=== PATIENT | female | born 1955 | race Caucasian/White ===

== ENCOUNTER 2020-01-10 11:55 | Inpatient (IN) | payer SELFPAY ==
--- NOTE | 2020-01-10 12:05 | ER Document Report ---
ED Medical Screen (RME) - General Chief Complaint: S/S of Possible Stroke Stated Complaint: POSSIBLE STROKE Time Seen by Provider: 01/10/20 11:57 - HPI Notes: 01/10/20 12:02 64-year-old female presents to the emergency room by private car for acute altered mental status. Patient states she went to work yesterday and could not remember "anything". Patient stated that it is October 09, 1996 stated that the president was Camacho and the choices was able to say that it was summer. She reports she has numbness and tingling in her right arm but this is pre-existing. Patient was having much difficulty trying to find her words. Denies any chest pain, shortness of breath, nausea vomiting or diarrhea, abdominal pain. Patient is alert and presents to the emergency room and is currently a poor historian. Patient will be evaluated in the back by one of the providers after getting a stat CT of her head. I have greeted and performed a rapid initial assessment of this patient. A comprehensive ED assessment and evaluation of the patient, analysis of test results and completion of the medical decision making process will be conducted by additional ED providers. PHYSICAL EXAMINATION: GENERAL: Chronically ill, well-nourished and in no acute distress. HEAD: Atraumatic, normocephalic. EYES: Pupils equal round extraocular movements intact, conjunctiva are normal. NECK: Normal range of motion CV: s1, s2 regular LUNGS: No respiratory distress Musculoskeletal: Normal range of motion NEUROLOGICAL: Normal speech, normal gait. PERRLA, EOMI. Full motor and sensory function throughout. Applied Technologist + 2 equal bilaterally in BUE. Tongue midline. No pronator drift. Neck with APROM. Raises eyebrows. Strength is 5 out of 5 in bilateral upper and lower extremities equally.Speaks in partial sentences. No weakness on one side. SKIN: Warm, Dry, normal turgor, no rashes or lesions noted.
--- NOTE | 2020-01-10 12:29 | RADIOLOGY REPORT (SQ) ---
EXAM DESCRIPTION: CT HEAD WITHOUT IMAGES COMPLETED DATE/TIME: 01/10/2020 12:08 pm REASON FOR STUDY: AMS COMPARISON: None. TECHNIQUE: Axial images acquired through the brain without intravenous contrast. Images reviewed wi th bone, brain and subdural windows. Additional sagittal and coronal reconstructions were generated. Images stored on PACS. All CT scanners at this facility use dose modulation, iterative reconstruction, and/or weight based d osing when appropriate to reduce radiation dose to as low as reasonably achievable (ALARA). [facility]: Dose Right [facility]: CareDose [facility]: Dose Right [facility]: Teradose 4D [facility]: Hallspot RADIATION DOSE: CT Rad equipment meets quality standard of care and radiation dose reduction techniq ues were employed. CTDIvol: 53.2 mGy. DLP: 1070 mGy-cm. mGy. LIMITATIONS: None. FINDINGS: VENTRICLES: Normal size and contour. CEREBRUM: No masses. No hemorrhage. No midline shift. No evidence for acute infarction. Focal area of decreased attenuation in the left frontal lobe consistent with acute infarct. CEREBELLUM: No masses. No hemorrhage. No alteration of density. No evidence for acute infarction. EXTRAAXIAL SPACES: No fluid collections. No masses. ORBITS AND GLOBE: No intra- or extraconal masses. Normal contour of globe without masses. CALVARIUM: No fracture. PARANASAL SINUSES: No fluid or mucosal thickening. SOFT TISSUES: No mass or hematoma. OTHER: No other significant finding. IMPRESSION: Acute left frontal lobe infarct. No hemorrhage. EVIDENCE OF ACUTE STROKE: YES. COMMENT: Pertinent positive or negative findings of the imaging study reported as a CRITICAL EXAM t carolynn Cantu at12:21 on 01/10/2020. Category of Critical Exam: Stroke protocol. Quality ID # 436: Final reports with documentation of one or more dose reduction techniques (e.g., Au tomated exposure control, adjustment of the mA and/or kV according to patient size, use of iterative reconstruction technique) TECHNICAL DOCUMENTATION: JOB ID: [id number] 2010 [employer]- All Rights Reserved Reading location - IP/workstation name: [email or web address]
--- NOTE | 2020-01-10 12:29 | RADIOLOGY REPORT (SQ) ---
EXAM DESCRIPTION: CHEST SINGLE VIEW IMAGES COMPLETED DATE/TIME: 01/10/2020 12:13 pm REASON FOR STUDY: AMS COMPARISON: None. EXAM PARAMETERS: NUMBER OF VIEWS: One view. TECHNIQUE: Single frontal radiographic view of the chest acquired. RADIATION DOSE: NA LIMITATIONS: None. FINDINGS: LUNGS AND PLEURA: No opacities, masses or pneumothorax. No pleural effusion. MEDIASTINUM AND HILAR STRUCTURES: No masses. Contour normal. HEART AND VASCULAR STRUCTURES: Heart normal in size. Normal vasculature. BONES: No acute findings. HARDWARE: None in the chest. OTHER: No other significant finding. IMPRESSION: NO ACUTE RADIOGRAPHIC FINDING IN THE CHEST. TECHNICAL DOCUMENTATION: JOB ID: [id number] 2010 [employer]- All Rights Reserved Reading location - IP/workstation name: [email or web address]
[2020-01-10] MEDS ORDERED: ASPIRIN 325 MG TABLET PO ONE (12:43)
[2020-01-10 12:44] LABS: ABSOLUTE BASOPHILS # (AUTO) 0.1 10^3/uL (0.0-0.2); ABSOLUTE MONOCYTES (AUTO) 0.4 10^3/uL (0.1-1.4); ABSOLUTE NEUT (AUTO) 4.7 10^3/uL (1.7-8.2); EOSINOPHILS % (AUTO) 0.7 % (0-6); HEMATOCRIT 40.9 % (36.0-47.0); HEMOGLOBIN 13.9 g/dL (12.0-15.5); LYMPHOCYTES % (AUTO) 27.4 % (13-45); MEAN CORPUSCULAR HEMOGLOBIN 31.2 pg (27.0-33.4); MEAN CORPUSCULAR VOLUME 92 fl (80-97); MONOCYTES % (AUTO) 5.8 % (3-13); PLATELET COUNT 280 10^3/uL (150-450); RED BLOOD COUNT 4.46 10^6/uL (3.72-5.28); RED CELL DISTRIBUTION WIDTH 13.5 % (11.5-14.0); SEGMENTED NEUTROPHILS % (AUTO) 65.1 % (42-78); TOTAL CELLS COUNTED % (AUTO) 100 %; WHITE BLOOD COUNT 7.2 10^3/uL (4.0-10.5)
--- NOTE | 2020-01-10 12:47 | ER Document Report ---
ED NIH Stroke Scale - NIH Stroke Scale When completed:: Before Alteplase *: 1. NIH scale should be completed with appropriate accompanying assessment tools. *: 2. The NIH should reflect what the patient is capable of doing and should not be coached by the clinician. 1a. Level of Consciousness: 0=Alert;keenly responsive -: 1=Drowsy -: 2=Obtunded -: 3=Coma/unresponsive or reflex to noxious stimuli. 1a. Responses: 0 1b. Orientation Questions: a. What month is it? -: b. How old are you? -: 0=Answers both questions correctly. -: 1=Answers one question correctly or patient is intubated or has orotracheal trauma. -: 2=Answers neither question correctly. 1b. Responses: 1 1c. Response to commands: a. Open and close eyes? -: b. Plastic Surgery Nurse and release hand? -: Credit is given despite weakness. Demonstration of task is permitted. Substitute command if hands cannot be used. -: 0=Performs both tasks correctly -: 1=Performs one task correctly -: 2=Performs neither task correctly 1c. Responses: 0 2. Gaze: Establish eye contact and instruct patient to "Follow my finger" -: 0=Normal -: 1=Partial gaze palsy. Gaze is abnormal in one or both eyes, but where forced deviation or total gaze paresis is not present. -: 2=Forced deviation or total gaze paresis. 2. Responses: 0 3. Visual Doherty: Sees fingers in all four quadrants. -: 0=No visual loss. -: 1=Partial hemianopsia. -: 2=Complete hemianopsia. -: 3=Bilateral hemianopsia (including Cortical blindness) 3. Responses: 0 4. Facial Movement: Instruct patient to: -: a. Show me your teeth -: b. Raise your eyebrows -: c. Close your eyes -: d. Smile -: 0=Normal symmetrical movement -: 1=Minor paralysis (flattened nasolabial fold, asymmetry on smiling). -: 2=Partial paralysis (total or near total paralysis of lower face). -: 3=Complete paralysis of upper and lower face 4. Responses: 0 5. Motor functions (left arm): Alternate sides and extend each arm with palms down (90 degrees if sitting or 45 degrees for supine). -: 0=No drift;limb holds for full 10 seconds. -: 1=Drift; limb holds but drifts down before full 10 seconds, but does not hit bed. -: 2=Some effort against gravity; limb cannot get to or maintain position. -: 3=No effort against gravity; limb falls. -: 4=No movement. -: UN=Amputation, joint fusion, explain in comments. 5. Responses (left arm): 0 5. Motor Functions (right arm): Alternate sides and extend each arm with palms down (90 degrees if sitting or 45 degrees for supine). -: 0=No drift;limb holds for full 10 seconds. -: 1=Drift; limb holds but drifts down before full 10 seconds, but does not hit bed. -: 2=Some effort against gravity; limb cannot get to or maintain position. -: 3=No effort against gravity; limb falls. -: 4=No movement. -: UN=Amputation, joint fusion, explain in comments. 5. Responses (right arm): 0 6. Motor Functions (left leg): With patient lying supine, alternate sides and extend each leg (30 degrees always while supine). -: 0=No drift, leg holds position for full 5 seconds -: 1=Drift; leg falls before full 5 seconds but does not hit bed. -: 2=Some effort against gravity, leg falls to bed but some effort against gravity. -: 3=No effort against gravity, leg falls to bed immediately. -: 4=No movement. -: UN=Amputation, joint fusion; explain in comments. 6. Responses (left leg): 0 6. Motor Functions (right leg): With patient lying supine, alternate sides and extend each leg (30 degrees always while supine). -: 0=No drift, leg holds position for full 5 seconds -: 1=Drift; leg falls before full 5 seconds but does not hit bed. -: 2=Some effort against gravity, leg falls to bed but some effort against gravity. -: 3=No effort against gravity, leg falls to bed immediately. -: 4=No movement. -: UN=Amputation, joint fusion; explain in comments. 6. Responses (right leg): 0 7. Limb Ataxia: With eyes open instruct patient to: -: a. "Touch your finger to your nose". -: b. "Touch your heel to your desai" -: 0=Absent -: 1=Present in one limb. -: 2=Present in two limbs. -: UN=Amputation or joint fusion; explain in comments. 7. Responses: 0 8. Sensory: Test sensation using pinprick or noxious stimuli. Test as many body parts as possible. -: 0=Normal;no sensory loss -: 1=Mile to moderate sensory loss (patient feels pin prick but is less sharp on affected side). -: 2=Severe or total sensory loss. 8. Responses: 0 9. Best Language: Instruct patient to: -: a. "Describe what you see in this picture." -: b. "Name the items in this picture." -: c. "Read these sentences." -: 0=No aphasia, normal -: 1=Mild to moderate aphasia. -: 2=Severe aphasia -: 3=Mute, global aphasia, no usable speech or auditory comprehension. 9. Responses: 2 10. Articulation, Dysarthia: Instruct patient to: -: "Read these words" or "Repeat these words" -: 0=Normal -: 1=Mild to moderate; patient may slur some words but can be understood without difficulty. -: 2=Severe; patients speech so slurred as to be unintelligible in the absence of dysphasia. -: UN=Intubated or other physical barrier, explain in comments. 10. Responses: 0 11. Extinction or inattention: 0=No abnormality -: 1= Visual, tactile, auditory, spatial, or personal inattention or extinction to bilateral simulation in one or the sensory modalities. -: 2=Profound shaheen-inattention or shaheen-inattention to more than one modality; does not recognize own hand. 11. Responses: 0 Total Score: 3
[2020-01-10 12:50] LABS: INTERNATIONAL RATION (INR) 0.93; PROTHROMBIN TIME 12.5 SEC (11.4-15.4)
[2020-01-10 12:51] LABS: PARTIAL THROMBOPLASTIN TIME 30.7 SEC (23.5-35.8)
[2020-01-10 13:06] LABS: ALBUMIN 4.3 g/dL (3.5-5.0); ALKALINE PHOSPHATASE 100 U/L (38-126); ANION GAP 7 (5-19); ASPARTATE AMINO TRANSFERASE 27 U/L (14-36); BILIRUBIN,TOTAL 0.4 mg/dL (0.2-1.3); BLOOD UREA NITROGEN 12 mg/dL (7-20); CALCIUM 10.1 mg/dL (8.4-10.2); CARBON DIOXIDE 24 mmol/L (22-30); CHLORIDE 103 mmol/L (98-107); GLUCOSE 149 mg/dL (75-110); PHOSPHORUS 3.5 mg/dL (2.5-4.5); POTASSIUM 4.8 mmol/L (3.6-5.0); TOTAL PROTEIN 7.3 g/dL (6.3-8.2)
--- NOTE | 2020-01-10 13:38 | ER Document Report ---
ED General - General Chief Complaint: S/S of Possible Stroke Stated Complaint: POSSIBLE STROKE Time Seen by Provider: 01/10/20 11:57 Mode of Arrival: Ambulatory Information source: Patient - HPI Notes: Patient arrives stating that she is having trouble speaking. She states that this started "yesterday afternoon". She states she does not know the exact time that it started yesterday afternoon. When pressed further she told one nurse it was 10:30 AM yesterday and another that it was 8 AM yesterday. Patient denies any pain. She states she is not having any trouble moving any extremity. She denies any numbness. She denies any vision changes or trouble swallowing. The main problem she has noticed is trouble speaking. This has been constant. She has not noticed any that makes it better or worse. There is obviously no radiation of the symptom. It is been severe. She denies any previous history of strokes or heart disease. Past Medical History - General Information source: Patient - Social History Smoking Status: Current Every Day Smoker Frequency of alcohol use: None Drug Abuse: None Family History: Reviewed & Not Pertinent Past Surgical History: Reports: Hx Section, Hx Hysterectomy Review of Systems - Review of Systems Constitutional: denies: Chills, Fever Cardiovascular: denies: Chest pain, Palpitations Respiratory: denies: Cough, Short of breath -: Yes All other systems reviewed and negative Physical Exam - Vital signs Vitals: Temp Pulse Resp BP Pulse Ox 98.7 F 112 H 20 136/76 H 99 01/10/20 11:59 01/10/20 11:59 01/10/20 11:59 01/10/20 11:59 01/10/20 11:59 Interpretation: Tachycardic - General General appearance: Appears well, Alert - HEENT Head: Normocephalic, Atraumatic Eyes: Normal Pupils: PERRL - Respiratory Respiratory status: No respiratory distress Chest status: Nontender Breath sounds: Normal Chest palpation: Normal - Cardiovascular Rhythm: Tachycardia Heart sounds: Normal auscultation Murmur: No - Abdominal Inspection: Normal Distension: No distension Bowel sounds: Normal Tenderness: Nontender Organomegaly: No organomegaly - Back Back: Normal, Nontender - Extremities General upper extremity: Normal inspection, Nontender, Normal color, Normal ROM, Normal temperature General lower extremity: Normal inspection, Nontender, Normal color, Normal ROM, Normal temperature, Normal weight bearing. No: Brian's sign - Neurological Neuro grossly intact: Yes Cognition: Confused Orientation: Disoriented to time Mini Coma Scale Eye Opening: Spontaneous [place] Coma Scale Verbal: Confused [place] Coma Scale Motor: Obeys Commands [place] Coma Scale Total: 14 Speech: Expressive aphasia Cerebellar coordination: No: Gait ataxia, Finger-nose rhombey Motor strength normal: LUE, RUE, LLE, RLE Additional motor exam normals: Equal sas etl developer. No: Involuntary movements, Pronator drift, Weakness Sensory: Normal - Psychological Associated symptoms: Normal affect, Normal mood - Skin Skin Temperature: Warm Skin Moisture: Dry Skin Color: Normal Course - Re-evaluation Re-evalutation: 01/10/20 13:37 Patient presents with signs and symptoms of an acute stroke. Head CT confirms the patient is having an acute stroke in the left MCA distribution. Patient is outside of the window for any type of intervention as she is more than 24 hours since the onset of symptoms. I did discuss this case with neurology at [facility] as well as [facility]. They both state that patient is not within the window for any type of treatment that could not be performed here. They both recommended that patient be admitted here for further care. She is within the permissible hypertension window therefore her blood pressure has not been treated at this time. She has been given an aspirin. She will be admitted to the hospital. - Vital Signs Vital signs: Temp Pulse Resp BP Pulse Ox 98.7 F 90 20 169/103 H 95 01/10/20 11:59 01/10/20 12:40 01/10/20 12:40 01/10/20 12:40 01/10/20 12:40 - Laboratory Result Diagrams: 01/10/20 12:25 01/10/20 12:25 Laboratory results interpreted by me: 01/10/20 12:25 Sodium 134.1 L Glucose 149 H - Diagnostic Test Radiology reviewed: Image reviewed, Reports reviewed - EKG Interpretation by Me EKG shows normal: Sinus rhythm Rate: Tachycardia - 107 Rhythm: NSR Albin/QRS: Left axis deviation Critical Care Note - Critical Care Note Total time excluding time spent on procedures (mins): 35 Comments: Approximate 35 minutes of acute care time were spent on this patient with an acute stroke. This was spent doing multiple reassessments. It was spent talking with multiple consultants. It was spent reviewing imaging and laboratory values. Discharge - Discharge Clinical Impression: Acute CVA (cerebrovascular accident), Expressive aphasia Condition: Serious Disposition: ADMITTED INPATIENT Admitting Provider: Vitaly (Hospitalist) Unit Admitted: Telemetry
[2020-01-10] MEDS ORDERED: ONDANSETRON 4 MG TAB.RAPDIS PO PRN (15:06)
[2020-01-10] MEDS ORDERED: ONDANSETRON HCL INJ/PF 4 MG/2 ML SDV IV PRN (15:06)
[2020-01-10] MEDS ORDERED: ACETAMINOPHEN 325 MG TABLET PO PRN (15:06)
--- NOTE | 2020-01-10 15:39 | RADIOLOGY REPORT (SQ) ---
EXAM DESCRIPTION: CTA HEAD IMAGES COMPLETED DATE/TIME: 01/10/2020 2:54 pm REASON FOR STUDY: stroke with expressive aphasia COMPARISON: None. TECHNIQUE: Post IV contrast scanning, thin section axial imaging through the brain to evaluate the a rterial structures. Source and MIP images are saved and reviewed on PACS. Advanced 3D imaging as volume-rendering, MIPs, SSD performed? yes All CT scanners at this facility use dose modulation, iterative reconstruction, and/or weight based d osing when appropriate to reduce radiation dose to as low as reasonably achievable (ALARA). [facility]: Dose Right [facility]: CareDose [facility]: Dose Right [facility]: Teradose 4D [facility]: LRN CONTRAST TYPE AND DOSE: 70 mL Omnipaque 350 RENAL FUNCTION: BUN 12, creatinine 0.6 LIMITATIONS: None. FINDINGS: TON[place]ANDA OF LOOMIS: The anterior, middle, posterior cerebral arteries are all patent. No ev idence of aneurysm or focal stenosis. POSTERIOR CIRCULATION: The distal vertebral arteries are patent as is the basilar artery. No aneurysm . BRAIN: No gross enhancing lesions as visualized. BONES: Intact as visualized. SINUSES: There is mucosal thickening in the right maxillary sinus. OTHER: No other significant finding. IMPRESSION: No large vessel occlusion. No aneurysm or focal stenosis. TECHNICAL DOCUMENTATION: JOB ID: [id number] Quality ID # [id number]: Final reports with documentation of one or more dose reduction techniques (e.g., Au tomated exposure control, adjustment of the mA and/or kV according to patient size, use of iterative reconstruction technique) 2010 [employer]- All Rights Reserved Reading location - IP/workstation name: [email or web address]
--- NOTE | 2020-01-10 15:42 | RADIOLOGY REPORT (SQ) ---
EXAM DESCRIPTION: CTA NECK IMAGES COMPLETED DATE/TIME: 01/10/2020 2:55 pm REASON FOR STUDY: stroke with expressive aphasia COMPARISON: None. TECHNIQUE: Axial dynamic scanning technique with dynamic contrast enhancement through the extra-aircraft instrument engineer nial carotid and vertebral arteries. Multiplanar reconstruction. 3-D MIPS and Volume-rendered imag es acquired at the workstation and saved to PACS. Images are reviewed in soft tissue, bone, lung w indows. All CT scanners at this facility use dose modulation, iterative reconstruction, and/or weight based d osing when appropriate to reduce radiation dose to as low as reasonably achievable (ALARA). [facility]: Dose Right [facility]: CareDose [facility]: Dose Right [facility]: Teradose 4D [facility]: ShowKit CONTRAST TYPE AND DOSE: 70 mL Omnipaque 350 RENAL FUNCTION: BUN 12, creatinine 0.6 LIMITATIONS: None. FINDINGS: AORTIC ARCH: Normal 3 vessel origin. Calcified plaque at the left common carotid artery a nd left subclavian artery. No high-grade stenosis. RIGHT CAROTIDS: Patent common, internal and external carotid arteries. Complex plaque in the carotid bulb extending into the proximal right ICA. Based on NASCET criteria. No hemodynamically significa nt stenosis. Correlation with duplex is recommended. Smallest lumen diameter in the ICA is 2.6 mm. RIGHT VERTEBRAL: Patent. No dissection. LEFT CAROTIDS: Patent common, internal and external carotid arteries. Complex calcified plaque in th e carotid bulb and proximal ICA is again noted. No high-grade stenosis based on NASCET criteria. Ag ain due to the complex appearing plaque correlation with ultrasound is recommended. LEFT VERTEBRAL: Patent. No dissection. OTHER: No other significant finding. OTHER: 3-D reconstructions confirm findings. IMPRESSION: Complex plaque in the distal common carotid arteries, carotid bulbs and proximal ICAs bi laterally. No hemodynamically significant stenosis. Recommend correlation with carotid duplex. COMMENT: Quality ID #[id number]: Measurements of distal internal carotid diameter were used as the denomina tor for stenosis measurement. TECHNICAL DOCUMENTATION: JOB ID: [id number] Quality ID # 436: Final reports with documentation of one or more dose reduction techniques (e.g., Au tomated exposure control, adjustment of the mA and/or kV according to patient size, use of iterative reconstruction technique) 2010 [employer]- All Rights Reserved Reading location - IP/workstation name: [email or web address]
--- NOTE | 2020-01-10 17:09 | RADIOLOGY REPORT (SQ) ---
EXAM DESCRIPTION: MRI HEAD WITHOUT IMAGES COMPLETED DATE/TIME: 01/10/2020 4:55 pm REASON FOR STUDY: cva COMPARISON: CT brain earlier same date. TECHNIQUE: Multiplanar imaging includes non-contrasted T1, T2, FLAIR, and diffusion with ADC map seq uences. Images stored on PACS. LIMITATIONS: None. FINDINGS: ANATOMY: No anomalies. Normal vascular flow voids. Pituitary fossa normal. CSF SPACES: Normal in size and contour. No hemorrhage. CEREBRUM: Small geographic area of increased T2 signal in the left frontal lobe cortex abutting the s ylvian fissure. Increased signal on diffusion with corresponding decreased signal on ADC map consist ent with acute infarct. No evidence of hemorrhage, mass, or extraaxial fluid collection. POSTERIOR FOSSA: No signal alteration. No hemorrhage. No edema, masses or mass effect. Internal carla tory canals, cerebello-pontine angles, mastoids normal. DIFFUSION IMAGING: See above. ORBITS: No masses. Globes normal. PARANASAL SINUSES: No fluid levels. Mucosa normal. OTHER: No other significant finding. IMPRESSION: Acute, nonhemorrhagic watershed infarct left frontal lobe. EVIDENCE OF ACUTE STROKE: YES. LEFT MCA COMMENT: This is a known finding. TECHNICAL DOCUMENTATION: JOB ID: [id number] 2010 [employer]- All Rights Reserved Reading location - IP/workstation name: [email or web address]
--- NOTE | 2020-01-10 17:39 | PDOC H&P ---
History of Present Illness Admission Date/PCP: 01/10/20 14:29 History of Present Illness: JIGNA NICOLE is a 64 year old female with past medical history significant for hypothyroidism and tobacco abuse who presents with a 2-day history of progressive expressive aphasia with word finding difficulties that began while patient was at work. She states she began to become very confused and unable to operate her computer which she normally operates with ease. She denies any nausea/vomiting/diarrhea/chest pain/abdominal pain and states that she has never had the symptoms in the past. She came to the ER of the next day and is being admitted for acute CVA seen on CT head. Patient states she only takes 25 mcg of Synthroid otherwise not take any medications. Patient is admitted to the general medical floor with telemetry and TTE, MRI, carotid ultrasound have all been ordered for work-up. She denies any history of atrial fibrillation or other cardiac arrhythmias. Past Medical History Cardiac Medical History: Reports: None Pulmonary Medical History: Reports: None Endocrine Medical History: Reports: Hypothyroidism Past Surgical History Past Surgical History: Reports: Section, Hysterectomy Social History Smoking Status: Current Every Day Smoker Cigarettes Packs Per Day: 0.5 Electronic Cigarette use?: No Frequency of Alcohol Use: None Hx Recreational Drug Use: No Drugs: None Hx Prescription Drug Abuse: No - Advance Directive Resuscitation Status: Do Not Resuscitate Surrogate healthcare decision maker:: Son-in-law Fabien Family History Family History: Reviewed & Not Pertinent Parental Family History Reviewed: Yes Children Family History Reviewed: Yes Sibling(s) Family History Reviewed.: Yes Medication/Allergy Home Medications: Levothyroxine Sodium 200 mcg PO Q6AM 01/10/20 Allergies/Adverse Reactions: No Known Allergies Allergy (Unverified 01/10/20 17:36) Review of Systems All systems: reviewed and no additional remarkable complaints except as stated - As per HPI, otherwise negative Physical Exam Vital Signs: Temp Pulse Resp BP Pulse Ox 98.7 F 90 20 169/103 H 95 01/10/20 11:59 01/10/20 12:40 01/10/20 12:40 01/10/20 12:40 01/10/20 12:40 Intake & Output 01/09/20 01/10/20 01/11/20 06:59 06:59 06:59 Weight 85.9 kg General appearance: PRESENT: no acute distress, well-developed, well-nourished Head exam: PRESENT: atraumatic, normocephalic Eye exam: PRESENT: conjunctiva pink Mouth exam: PRESENT: moist Respiratory exam: PRESENT: clear to auscultation nathalie. ABSENT: rales, rhonchi, wheezes Cardiovascular exam: PRESENT: RRR. ABSENT: diastolic murmur, rubs, systolic murmur GI/Abdominal exam: PRESENT: normal bowel sounds, soft. ABSENT: distended, guar ding, mass, organolmegaly, rebound, tenderness Rectal exam: PRESENT: deferred Musculoskeletal exam: PRESENT: ambulatory Neurological exam: PRESENT: alert, awake, oriented to person, oriented to place, oriented to time, oriented to situation, CN II-XII grossly intact, aphasic. ABSENT: motor sensory deficit Psychiatric exam: PRESENT: appropriate affect, normal mood Skin exam: PRESENT: dry, intact, warm Results Laboratory Results: 01/10/20 12:25 01/10/20 12:25 01/10/20 01/10/20 12:25 12:25 WBC 7.2 RBC 4.46 Hgb 13.9 Hct 40.9 MCV 92 MCH 31.2 MCHC 34.0 RDW 13.5 Plt Count 280 Seg Neutrophils % 65.1 Sodium 134.1 L Potassium 4.8 Chloride 103 Carbon Dioxide 24 Anion Gap 7 BUN 12 Creatinine 0.60 Est GFR ( Amer) > 60 Glucose 149 H Calcium 10.1 Phosphorus 3.5 Magnesium 1.8 Total Bilirubin 0.4 AST 27 Alkaline Phosphatase 100 Total Protein 7.3 Albumin 4.3 01/10/20 12:25 Troponin I < 0.012 Impressions: Head MRI 01/10/20 00:00 IMPRESSION: Acute, nonhemorrhagic watershed infarct left frontal lobe. EVIDENCE OF ACUTE STROKE: YES. LEFT MCA Chest X-Ray 01/10/20 12:01 IMPRESSION: NO ACUTE RADIOGRAPHIC FINDING IN THE CHEST. Head CT 01/10/20 12:01 IMPRESSION: Acute left frontal lobe infarct. No hemorrhage. EVIDENCE OF ACUTE STROKE: YES. Head CTA 01/10/20 13:26 IMPRESSION: No large vessel occlusion. No aneurysm or focal stenosis. Neck CTA 01/10/20 13:26 IMPRESSION: Complex plaque in the distal common carotid arteries, carotid bulbs and proximal ICAs bilaterally. No hemodynamically significant stenosis. Recommend correlation with carotid duplex. Assessment and Plan - Diagnosis (1) Acute CVA (cerebrovascular accident) Is this a current diagnosis for this admission?: Yes Plan: 2-day history of progressive expressive aphasia, denies any motor weakness or sensory loss CT head without contrast showed acute CVA MRI brain pending TTE pending Carotid ultrasound pending Aspirin, statin Lipid panel Telemetry Permissive hypertension for 48 hours from onset of symptoms; pressure goal is less than 220/110 (2) Expressive aphasia Is this a current diagnosis for this admission?: Yes Plan: Due to stroke as above PT/OT/ST (3) Hypothyroidism Is this a current diagnosis for this admission?: Yes (4) Tobacco abuse Is this a current diagnosis for this admission?: Yes Plan: Counseled on cessation greater than 16 minutes, not interested in quitting - Time Time Spent with patient: 35 or more minutes Smoking Cessation Education: over 10 minutes Medications reviewed and adjusted accordingly: Yes Anticipated discharge: Home Within: within 48 hours - Inpatient Certification Based on my medical assessment, after consideration of the patient's comorb idities, presenting symptoms, or acuity I expect that the services needed warrant INPATIENT care.: Yes I certify that my determination is in accordance with my understanding of Medicare's requirements for reasonable and necessary INPATIENT services [42 CFR 412.3e].: Yes Medical Necessity: Significant Comorbidiites Make Outpatient Treatment Too Risky, Need Close Monitoring Due to Risk of Patient Decompensation, Risk of Complication if Not Cared For in Hospital, Risk of Diagnosis Which Will Require Inpatient Eval/Care/Monitoring
--- NOTE | 2020-01-10 18:36 | ADVANCED CARE ---
- Diagnosis (1) Acute CVA (cerebrovascular accident) Diagnosis Current: Yes (2) Expressive aphasia Diagnosis Current: Yes (3) Hypothyroidism Diagnosis Current: Yes (4) Tobacco abuse Diagnosis Current: Yes Attendance: Patient and nurse Resuscitation Status: Do Not Resuscitate Discussion: All aspects of code status discussed with patient/POA including cardioversion, chest compressions, and intubation and the patient/POA indicated they wish to be DNR/DNI. MPOA is designated as: Son-in-law Fabien Time Spent: Greater than 16 minutes
[2020-01-11 06:19] LABS: ABSOLUTE BASOPHILS # (AUTO) 0.1 10^3/uL (0.0-0.2); ABSOLUTE EOSINOPHILS # (AUTO) 0.2 10^3/uL (0.0-0.6); ABSOLUTE LYMPHOCYTES (AUTO) 2.5 10^3/uL (0.5-4.7); ABSOLUTE MONOCYTES (AUTO) 0.7 10^3/uL (0.1-1.4); ABSOLUTE NEUT (AUTO) 3.5 10^3/uL (1.7-8.2); BASOPHILS % (AUTO) 0.9 % (0-2); EOSINOPHILS % (AUTO) 2.3 % (0-6); HEMATOCRIT 38.1 % (36.0-47.0); HEMOGLOBIN 13.1 g/dL (12.0-15.5); LYMPHOCYTES % (AUTO) 36.1 % (13-45); MEAN CORPUSCULAR HEMOGLOBIN 31.5 pg (27.0-33.4); MEAN CORPUSCULAR HGB CONC 34.4 g/dL (32.0-36.0); MEAN CORPUSCULAR VOLUME 92 fl (80-97); MONOCYTES % (AUTO) 9.8 % (3-13); PLATELET COUNT 253 10^3/uL (150-450); RED BLOOD COUNT 4.17 10^6/uL (3.72-5.28); RED CELL DISTRIBUTION WIDTH 13.6 % (11.5-14.0); SEGMENTED NEUTROPHILS % (AUTO) 50.9 % (42-78); TOTAL CELLS COUNTED % (AUTO) 100 %; WHITE BLOOD COUNT 6.8 10^3/uL (4.0-10.5)
[2020-01-11 06:37] LABS: ANION GAP 7 (5-19); BLOOD UREA NITROGEN 11 mg/dL (7-20); CALCIUM 9.7 mg/dL (8.4-10.2); CARBON DIOXIDE 23 mmol/L (22-30); CHLORIDE 106 mmol/L (98-107); CHOLESTEROL 261.55 mg/dL (0-200); GLUCOSE 108 mg/dL (75-110); PHOSPHORUS 4.2 mg/dL (2.5-4.5); TRIGLYCERIDES 101 mg/dL (<150)
[2020-01-11 06:47] LABS: DIRECT LDL 180 mg/dL (<100)
[2020-01-11 07:13] LABS: URINE AMPHETAMINES SCREEN NEGATIVE; URINE BARBITURATES SCREEN NEGATIVE; URINE BENZODIAZEPINES SCREEN NEGATIVE; URINE COCAINE SCREEN NEGATIVE; URINE MARIJUANA (THC) SCREEN NEGATIVE; URINE METHADONE SCREEN NEGATIVE; URINE PHENCYCLIDINE SCREEN NEGATIVE
--- NOTE | 2020-01-11 09:18 | EKG REPORT ---
SEVERITY:- ABNORMAL ECG - SINUS TACHYCARDIA BIATRIAL ABNORMALITIES BORDERLINE LEFT AXIS DEVIATION CONSIDER POSTERIOR INFARCT NONSPECIFIC REPOL ABNORMALITY, DIFFUSE LEADS : Confirmed by: Alexey Nieves 11-Jan-2020 09:17:29
[2020-01-11] MEDS: ENOXAPARIN SODIUM INJ 40 MG/0.4 ML DISP.SYRIN SUBCUT SCH (10:50)
--- NOTE | 2020-01-11 11:17 | PDOC PROGRESS REPORT ---
Subjective Progress Note for:: 01/11/20 Subjective:: No adverse events overnight. No new complaints. Speech therapy has determined she has a receptive and expressive aphasia. Blood pressures have been stable without intervention. Other than her speech, she seems to have no deficits. Reason For Visit: ACUTE CVA Physical Exam Vital Signs: Temp Pulse Resp BP Pulse Ox 98.2 F 75 20 103/63 91 L 01/11/20 07:17 01/11/20 09:00 01/11/20 09:00 01/11/20 09:00 01/11/20 09:00 Intake & Output 01/10/20 01/11/20 01/12/20 06:59 06:59 06:59 Output Total 200 Balance -200 Weight 87.5 kg General appearance: PRESENT: no acute distress, cooperative, disheveled, obese Head exam: PRESENT: atraumatic, normocephalic Eye exam: PRESENT: EOMI, PERRLA. ABSENT: conjunctival injection, nystagmus, scleral icterus Respiratory exam: PRESENT: clear to auscultation nathalie, symmetrical, unlabored. ABSENT: accessory muscle use, chest wall tenderness, crackles, prolonged expiratory phas, rhonchi, tachypnea, wheezes Cardiovascular exam: PRESENT: RRR, +S1, +S2 Pulses: PRESENT: normal carotid pulses Vascular exam: PRESENT: normal capillary refill GI/Abdominal exam: PRESENT: normal bowel sounds, soft. ABSENT: distended, guarding, rebound, tenderness Extremities exam: ABSENT: clubbing, pedal edema Musculoskeletal exam: PRESENT: normal inspection. ABSENT: deformity Neurological exam: PRESENT: alert, awake, oriented to person, oriented to situation, other - Receptive and expressive aphasia Psychiatric exam: PRESENT: appropriate affect, normal mood Skin exam: PRESENT: dry, warm Results Laboratory Results: 01/11/20 05:00 01/11/20 05:00 01/10/20 01/10/20 01/11/20 12:25 12:25 05:00 WBC 7.2 6.8 RBC 4.46 4.17 Hgb 13.9 13.1 Hct 40.9 38.1 MCV 92 92 MCH 31.2 31.5 MCHC 34.0 34.4 RDW 13.5 13.6 Plt Count 280 253 Seg Neutrophils % 65.1 50.9 Sodium 134.1 L Potassium 4.8 Chloride 103 Carbon Dioxide 24 Anion Gap 7 BUN 12 Creatinine 0.60 Est GFR ( Amer) > 60 Glucose 149 H Calcium 10.1 Phosphorus 3.5 Magnesium 1.8 Total Bilirubin 0.4 AST 27 Alkaline Phosphatase 100 Total Protein 7.3 Albumin 4.3 Triglycerides Cholesterol LDL Cholesterol Direct VLDL Cholesterol HDL Cholesterol 01/11/20 05:00 WBC RBC Hgb Hct MCV MCH MCHC RDW Plt Count Seg Neutrophils % Sodium 136.0 L Potassium 4.0 Chloride 106 Carbon Dioxide 23 Anion Gap 7 BUN 11 Creatinine 0.55 Est GFR ( Amer) > 60 Glucose 108 Calcium 9.7 Phosphorus 4.2 Magnesium 2.0 Total Bilirubin AST Alkaline Phosphatase Total Protein Albumin Triglycerides 101 Cholesterol 261.55 H LDL Cholesterol Direct 180 H VLDL Cholesterol 20.0 HDL Cholesterol 48 01/10/20 12:25 Troponin I < 0.012 Impressions: Head MRI 01/10/20 00:00 IMPRESSION: Acute, nonhemorrhagic watershed infarct left frontal lobe. EVIDENCE OF ACUTE STROKE: YES. LEFT MCA Chest X-Ray 01/10/20 12:01 IMPRESSION: NO ACUTE RADIOGRAPHIC FINDING IN THE CHEST. Head CT 01/10/20 12:01 IMPRESSION: Acute left frontal lobe infarct. No hemorrhage. EVIDENCE OF ACUTE STROKE: YES. Head CTA 01/10/20 13:26 IMPRESSION: No large vessel occlusion. No aneurysm or focal stenosis. Neck CTA 01/10/20 13:26 IMPRESSION: Complex plaque in the distal common carotid arteries, carotid bulbs and proximal ICAs bilaterally. No hemodynamically significant stenosis. Recommend correlation with carotid duplex. Assessment and Plan - Diagnosis (1) Acute CVA (cerebrovascular accident) Is this a current diagnosis for this admission?: Yes Plan: It is in the left MCA territory. Deficits at this point seem limited to aphasia. Continue current management. Echocardiogram and carotid Doppler pending. Continue aspirin and statin. (2) Combined receptive and expressive aphasia Is this a current diagnosis for this admission?: Yes (3) Hypothyroidism Qualifiers: Hypothyroidism type: other Qualified Code(s): E03.8 - Other specified hypothyroidism Is this a current diagnosis for this admission?: Yes Plan: Continue levothyroxine (4) Tobacco abuse Is this a current diagnosis for this admission?: Yes Plan: Cessation has been counseled - Time Time Spent with patient: 15-24 minutes Anticipated discharge: Home with Homehealth Within: within 48 hours
--- NOTE | 2020-01-11 15:16 | RADIOLOGY REPORT (SQ) ---
EXAM DESCRIPTION: CAROTID DOPPLER IMAGES COMPLETED DATE/TIME: 01/11/2020 2:20 pm REASON FOR STUDY: vascular disease, cva COMPARISON: None. TECHNIQUE: Grayscale ultrasound, Doppler velocity and spectra, and color Doppler images acquired of the extra-cranial carotid and vertebral arteries. Images stored on PACS. LIMITATIONS: None. FINDINGS: RIGHT CAROTID CCA Velocities: Within normal limits. ICA Velocities Peak systolic 1.53 m/s. End diastolic 0.47 m/s. Proximal ICA/CCA peak systolic ratio 2.2. Moderate plaque bulb and proximal ICA. LEFT CAROTID CCA Velocities: Within normal limits. ICA Velocities Peak systolic 1.51 m/s. End diastolic 0.50 m/s. Proximal ICA/CCA peak systolic ratio 1.6. Moderate plaque bulb and proximal ICA. VERTEBRAL ARTERIES: Antegrade flow. Normal waveforms. SUBCLAVIAN ARTERIES: Not imaged. OTHER: No other significant finding. IMPRESSION: 50- 69% stenosis bilateral ICAs. COMMENT: Quality ID #[id number]: Velocity criteria are extrapolated from the diameter data as defined by t he Society of Radiologists in Ultrasound Consensus Conference. Radiology 2003: 229; 340-346. TECHNICAL DOCUMENTATION: JOB ID: [id number] 2010 [employer]- All Rights Reserved Reading location - IP/workstation name: [email or web address]
[2020-01-11] MEDS ORDERED: ATORVASTATIN CALCIUM 80 MG TABLET PO SCH (22:00)
--- NOTE | 2020-01-12 01:19 | XCELERA REPORT ---
[address] [address] Transthoracic Echocardiogram Report Name: JIGNA NICOLE Age: 64 yrs Gender: Female : 1955 Patient Status: Inpatient Patient Location: [address] [place], [place] [id number] Study Date: 01/11/2020 10:04 AM Height: 67 in Weight: 189 lb BSA: 2.0 m2 Procedure: A complete two-dimensional transthoracic echocardiogram was performed (2D, M-mode, spectral and color flow Doppler). The study was technically adequate with some images being suboptimal in quality. Reason For Study: cva Ordering Physician: SKYLAR MAC Performed By: Gabriella Khalil Interpretation Summary LEFT VENTRICLE: LV Systolic function: LVEF is felt to be within normal limits. Best estimate is approximately LVEF is 60 to 65%. LV Diastolic Function: Grade II diastolic dysfunction noted. Wall motion: No definite regional wall motion abnormalities are noted. Left ventricular chamber size: is within normal limit. Left ventricular wall thickness: is increased indicative of Mild LVH. RIGHT VENTRICLE: RV systolic function: is felt to be within normal limit. Right Ventricle Size: is within normal limits. LEFT ATRIUM size: is mildly dilated. RIGHT ATRIUM size: is within normal limit. INTER ATRIAL SEPTUM: No definite atrial septal defect noted however a small PFO could be missed. AORTIC ROOT: seems to be within normal limits. ASCENDING AORTA: is not well visualized. INFERIOR VENA CAVA: WNL with normal respiratory variation. VALVES: MITRAL VALVE: Leaflets are mildly thickened. Mobility seems to be within normal limits. Mitral Regurgitation: Trace mitral regurgitation is noted. Mitral Stenosis: No mitral stenosis noted. Mitral valve prolapse: none noted. AORTIC VALVE: seems to be trileaflet with mild thickening but adequate excursion. Aortic stenosis: No aortic stenosis noted. Aortic regurgitation: trace aortic incompetence noted. TRICUSPID VALVE: mobility and structures within normal limit. Tricuspid stenosis: no tricuspid stenosis noted. Tricuspid regurgitation: Trace tricuspid regurgitation noted. Estimated RVSP: cannot be accurately commented upon but possibly at upper limit of normal. PULMONARY VALVE: was not well visualized but no significant abnormalities suspected. Pulmonary stenosis: no pulmonary stenosis noted. Pulmonary regurgitation: no significant pulmonary regurgitation noted. MASSES AND THROMBUS: No definite intracardiac thrombus or masses are noted. PERICARDIUM: No pericardial effusion was noted. IMPRESSION: 1. Normal LVEF. 2. Mild LVH noted. 3. Grade II mild Diastolic Dysfunction noted. 4. No significant valvular stenosis or regurgitation noted. 5. LA is mildly dilated. MMode/2D Measurements & Calculations RVDd: 3.0 cm LVIDd: 4.2 cm FS: 45.7 % Ao root diam: 2.9 cm IVSd: 1.0 cm LVIDs: 2.3 cm EDV(Teich): 77.1 ml Ao root area: 6.7 cm2 LVPWd: 1.0 cm ESV(Teich): 17.4 ml LA dimension: 2.8 cm EF(Teich): 77.5 % Doppler Measurements & Calculations MV E max dara: MV P1/2t max dara: Ao V2 max: LV V1 max P.1 cm/sec 72.1 cm/sec 152.7 cm/sec 5.4 mmHg MV A max dara: MV P1/2t: 70.6 msec Ao max P.3 mmHgLV V1 max: 95.8 cm/sec MVA(P1/2t): 3.1 cm2 116.5 cm/sec MV E/A: 0.75 MV dec slope: 298.9 cm/sec2 MV dec time: 0.23 sec PA V2 max: TR max dara: MV P1/2t-pr_phl: 102.2 cm/sec 222.6 cm/sec 70.6 msec PA max P.2 mmHgTR max P.8 mmHg : SKYLAR MAC Shyamal
[2020-01-12] MEDS: ENOXAPARIN SODIUM INJ 40 MG/0.4 ML DISP.SYRIN SUBCUT SCH (09:39)
[2020-01-12] MEDS ORDERED: ASPIRIN 81 MG TABLET, CHEWABLE PO SCH (10:00)
[2020-01-12 13:31] VITALS: BP 107/61
--- NOTE | 2020-01-12 16:54 | PDOC DISCHARGE SUMMARY ---
Impression - Admit/DC Date/PCP Admission Date/Primary Care Provider: 01/10/20 14:29 Discharge Date: 01/12/20 - Discharge Diagnosis (1) Acute CVA (cerebrovascular accident) Is this a current diagnosis for this admission?: Yes (2) Combined receptive and expressive aphasia Is this a current diagnosis for this admission?: Yes (3) Hypothyroidism Is this a current diagnosis for this admission?: Yes (4) Tobacco abuse Is this a current diagnosis for this admission?: Yes - Additional Information Resuscitation Status: Do Not Resuscitate Discharge Diet: Cardiac Discharge Activity: Balance Activity w/Rest, Slowly Increase Activity Referrals: [facility] [Provider Group] - 01/19/20 10:00 am (1 week) [facility] [Outside] Prescriptions: Atorvastatin Calcium [Lipitor 20 mg Tablet] 20 mg PO QHS #30 tablet Home Medications: Levothyroxine Sodium 200 mcg PO Q6AM 01/10/20 Aspirin [Aspirin 81 mg Chewable Tablet] 81 mg PO DAILY tab.chew 01/12/20 Atorvastatin Calcium [Lipitor 20 mg Tablet] 20 mg PO QHS #30 tablet 01/12/20 History of Present Illiness History of Present Illness: JIGNA NICOLE is a 64 year old female with past medical history significant for hypothyroidism and tobacco abuse who presents with a 2-day history of progressive expressive aphasia with word finding difficulties that began while patient was at work. She states she began to become very confused and unable to operate her computer which she normally operates with ease. She denies any nausea/vomiting/diarrhea/chest pain/abdominal pain and states that she has never had the symptoms in the past. She came to the ER of the next day and is being admitted for acute CVA seen on CT head. Patient states she only takes 25 mcg of Synthroid otherwise not take any medications. Patient is admitted to the general medical floor with telemetry and TTE, MRI, carotid ultrasound have all been ordered for work-up. She denies any history of atrial fibrillation or other cardiac arrhythmias. Hospital Course Hospital Course: MRI confirmed a left MCA territory stroke. The only deficit is that she displayed some a aphasia, which was determined to have a receptive and expressive component. Fortunately, she has been working with speech therapy and has had some improvement. She will continue on aspirin and statin at home. She will need outpatient speech therapy. She had no trouble chewing or swallowing. She was ambulating independently and is able to perform her own ADLs. She has follow-up arranged for 1 to 2 weeks. Her labs and examination were reassuring and she was discharged in stable condition. Physical Exam Vital Signs: Temp Pulse Resp BP Pulse Ox 97.6 F 79 18 107/61 99 01/12/20 13:13 01/12/20 13:13 01/12/20 13:13 01/12/20 13:13 01/12/20 13:13 Intake & Output 01/11/20 01/12/20 01/13/20 06:59 06:59 06:59 Intake Total 956 360 Output Total 200 1300 Balance -200 -344 360 Weight 87.5 kg 86.6 kg General appearance: PRESENT: no acute distress, cooperative, disheveled, obese Head exam: PRESENT: atraumatic, normocephalic Eye exam: PRESENT: EOMI, PERRLA. ABSENT: conjunctival injection, nystagmus, scleral icterus Respiratory exam: PRESENT: clear to auscultation nathalie, symmetrical, unlabored. ABSENT: accessory muscle use, chest wall tenderness, crackles, prolonged expiratory phas, rhonchi, tachypnea, wheezes Cardiovascular exam: PRESENT: RRR, +S1, +S2 Pulses: PRESENT: normal carotid pulses Vascular exam: PRESENT: normal capillary refill GI/Abdominal exam: PRESENT: normal bowel sounds, soft. ABSENT: distended, guarding, rebound, tenderness Extremities exam: ABSENT: clubbing, pedal edema Musculoskeletal exam: PRESENT: normal inspection. ABSENT: deformity Neurological exam: PRESENT: alert, awake, oriented to person, oriented to situation, other -mild receptive and expressive aphasia Psychiatric exam: PRESENT: appropriate affect, normal mood Skin exam: PRESENT: dry, warm Results Laboratory Results: WBC 6.8 10^3/uL (4.0-10.5) 01/11/20 05:00 RBC 4.17 10^6/uL (3.72-5.28) 01/11/20 05:00 Hgb 13.1 g/dL (12.0-15.5) 01/11/20 05:00 Hct 38.1 % (36.0-47.0) 01/11/20 05:00 MCV 92 fl (80-97) 01/11/20 05:00 MCH 31.5 pg (27.0-33.4) 01/11/20 05:00 MCHC 34.4 g/dL (32.0-36.0) 01/11/20 05:00 RDW 13.6 % (11.5-14.0) 01/11/20 05:00 Plt Count 253 10^3/uL (150-450) 01/11/20 05:00 Lymph % (Auto) 36.1 % (13-45) 01/11/20 05:00 [place] % (Auto) 9.8 % (3-13) 01/11/20 05:00 Eos % (Auto) 2.3 % (0-6) 01/11/20 05:00 Baso % (Auto) 0.9 % (0-2) 01/11/20 05:00 Absolute Neuts (auto) 3.5 10^3/uL (1.7-8.2) 01/11/20 05:00 Absolute Lymphs (auto) 2.5 10^3/uL (0.5-4.7) 01/11/20 05:00 Absolute Monos (auto) 0.7 10^3/uL (0.1-1.4) 01/11/20 05:00 Absolute Eos (auto) 0.2 10^3/uL (0.0-0.6) 01/11/20 05:00 Absolute Basos (auto) 0.1 10^3/uL (0.0-0.2) 01/11/20 05:00 Seg Neutrophils % 50.9 % (42-78) 01/11/20 05:00 PT 12.5 SEC (11.4-15.4) 01/10/20 12:25 INR 0.93 01/10/20 12:25 APTT 30.7 SEC (23.5-35.8) 01/10/20 12:25 Sodium 136.0 mmol/L (137-145) L 01/11/20 05:00 Potassium 4.0 mmol/L (3.6-5.0) 01/11/20 05:00 Chloride 106 mmol/L (98-107) 01/11/20 05:00 Carbon Dioxide 23 mmol/L (22-30) 01/11/20 05:00 Anion Gap 7 (5-19) 01/11/20 05:00 BUN 11 mg/dL (7-20) 01/11/20 05:00 Creatinine 0.55 mg/dL (0.52-1.25) 01/11/20 05:00 Est GFR ( Amer) > 60 (>60) 01/11/20 05:00 Est GFR (MDRD) Non-Af > 60 (>60) 01/11/20 05:00 Glucose 108 mg/dL (75-110) 01/11/20 05:00 Hemoglobin A1c % 5.5 % (4.7-6.0) 01/11/20 05:00 Calcium 9.7 mg/dL (8.4-10.2) 01/11/20 05:00 Phosphorus 4.2 mg/dL (2.5-4.5) 01/11/20 05:00 Magnesium 2.0 mg/dL (1.6-2.3) 01/11/20 05:00 Total Bilirubin 0.4 mg/dL (0.2-1.3) 01/10/20 12:25 Direct Bilirubin 0.0 mg/dL (0.0-0.4) 01/10/20 12:25 Neonat Total Bilirubin Not Reportable 01/10/20 12:25 Neonat Direct Bilirubin Not Reportable 01/10/20 12:25 Neonat Indirect Bili Not Reportable 01/10/20 12:25 AST 27 U/L (14-36) 01/10/20 12:25 ALT 19 U/L (<35) 01/10/20 12:25 Alkaline Phosphatase 100 U/L (38-126) 01/10/20 12:25 Troponin I < 0.012 ng/mL 01/10/20 12:25 Total Protein 7.3 g/dL (6.3-8.2) 01/10/20 12:25 Albumin 4.3 g/dL (3.5-5.0) 01/10/20 12:25 Triglycerides 101 mg/dL (<150) 01/11/20 05:00 Cholesterol 261.55 mg/dL (0-200) H 01/11/20 05:00 LDL Cholesterol Direct 180 mg/dL (<100) H 01/11/20 05:00 VLDL Cholesterol 20.0 mg/dL (10-31) 01/11/20 05:00 HDL Cholesterol 48 mg/dL (>40) 01/11/20 05:00 Urine Opiates Screen NEGATIVE 01/11/20 06:20 Urine Methadone Screen NEGATIVE 01/11/20 06:20 Ur Barbiturates Screen NEGATIVE 01/11/20 06:20 Ur Phencyclidine Scrn NEGATIVE 01/11/20 06:20 Ur Amphetamines Screen NEGATIVE 01/11/20 06:20 U Benzodiazepines Scrn NEGATIVE 01/11/20 06:20 Urine Cocaine Screen NEGATIVE 01/11/20 06:20 U Marijuana (THC) Screen NEGATIVE 01/11/20 06:20 01/10/20 12:25 Troponin I < 0.012 Impressions: Head MRI 01/10/20 00:00 IMPRESSION: Acute, nonhemorrhagic watershed infarct left frontal lobe. EVIDENCE OF ACUTE STROKE: YES. LEFT MCA Chest X-Ray 01/10/20 12:01 IMPRESSION: NO ACUTE RADIOGRAPHIC FINDING IN THE CHEST. Head CT 01/10/20 12:01 IMPRESSION: Acute left frontal lobe infarct. No hemorrhage. EVIDENCE OF ACUTE STROKE: YES. Head CTA 01/10/20 13:26 IMPRESSION: No large vessel occlusion. No aneurysm or focal stenosis. Neck CTA 01/10/20 13:26 IMPRESSION: Complex plaque in the distal common carotid arteries, carotid bulbs and proximal ICAs bilaterally. No hemodynamically significant stenosis. Recommend correlation with carotid duplex. Carotid Doppler Study 01/11/20 00:00 IMPRESSION: 50- 69% stenosis bilateral ICAs. Plan Time Spent: Greater than 30 Minutes Stroke Is this a Stroke Patient?: Yes Stroke Pt being discharged on Anti-thrombolytic therapy?: Yes Stroke Pt being discharged on Anti-coagulation therapy?: No Reason(s) for not prescribing Anti-coagulation therapy:: Not indicated Stroke Pt being discharged on Statins?: Yes Acute Heart Failure - Is this a Heart Failure Patient?: No
== END 2020-01-12 14:24 | disposition home or self-care (01) | DRG 66 ==
LOC: ER 11:55 → EH 14:29 → 3W 16:56
PROVIDERS: ADMIT Internal Medicine; ATTEND Family Medicine
DX: I63.89 Other cerebral infarction (principal); R47.01 Aphasia; E03.9 Hypothyroidism, unspecified; Z79.890 Hormone replacement therapy; R29.703 NIHSS score 3
CPT/HCPCS: 36415; 70450; 70496; 70498; 70551; 71045; 80048; 80053; 80061; 80307; 83036; 83735; 84100; 84484; 85025; 85610; 85730; 93005; 93010; 93306; 93880; 99291; J1650